=== PATIENT | female | born 1975 | race Caucasian/White ===

== ENCOUNTER 2017-05-24 22:05 | Emergency (ER) | payer BC, MEDICAID, OTHER ==
[~2017-05-24] VITALS: Ht 162.6 cm; Wt 72.6 kg
[2017-05-24] MEDS ORDERED: TETRACAINE HCL/PF 0.5% UD 2 ML BOTTLE ONE (22:44)
[2017-05-24] MEDS ORDERED: FLUORESCEIN SODIUM OPHTH 1 EA STRIP ONE (22:44)
[2017-05-24] MEDS ORDERED: TONO PEN in ED SUPPLY ONICELL 1 EA MC ONE (23:00)
[2017-05-24] MEDS ORDERED: diphenhydrAMINE HCL 50 MG/ML VIAL IV ONE (23:00)
[2017-05-24] MEDS ORDERED: METOCLOPRAMIDE HCL 10 MG/2 ML VIAL IV ONE (23:00)
[2017-05-24] MEDS ORDERED: TETRACAINE HCL/PF 0.5% UD 2 ML BOTTLE EACHEYE ONE (23:00)
[2017-05-24] MEDS ORDERED: FLUORESCEIN SODIUM OPHTH 1 EA STRIP OP ONE (23:00)
[2017-05-24] MEDS ORDERED: IV NS 0.9% 1,000 ML BAG IV ONE (23:00)
--- NOTE | 2017-05-24 23:00 | NUR ---
BIBSELF C/O RIGHT EYE PAIN/ HEADACHE X3AM . DENIES TRAUMA . SEEN BY MD FOR EVLISBETH. NAD NOTED. FAMILY MEMBER AT BS. SAFETY AND COMFORT MEASURES PROVIDED. WILL MONITOR.
[2017-05-24] MEDS ORDERED: diphenhydrAMINE HCL 50 MG/ML VIAL ONE (23:03)
[2017-05-24] MEDS ORDERED: METOCLOPRAMIDE HCL 10 MG/2 ML VIAL ONE (23:04)
--- NOTE | 2017-05-24 23:33 | NUR ---
ENDORSED TO ADOLPH RN FOR FLORI.
--- NOTE | 2017-05-25 00:59 | NUR ---
Patient discharged to home in stable condition. Written and verbal after care instructions along with RX given. Patient verbalizes understanding of instruction.IV removed. Catheter intact and site benign. Pressure and 4x4 applied to site. No bleeding noted. VSS upon discharge.
[2017-05-25 01:00] VITALS: BP 119/80
== END 2017-05-25 01:01 | disposition home or self-care (01) ==
LOC: ER 22:08
DX: R51 Headache (principal); Z98.890 Other specified postprocedural states
CPT/HCPCS: 70450-TC; 84703-TC; A4606; J1200; J2765; J7030; Z7610

== ENCOUNTER 2018-12-15 21:39 | Emergency (ER) | payer BC ==
[~2018-12-15] VITALS: Ht 162.6 cm; Wt 78.0 kg
[2018-12-15 22:16] VITALS: BP 129/84
--- NOTE | 2018-12-15 22:42 | NUR ---
BIBSELF FROM HOME W/ FAMILY. TO ER BED 18. AAOX4. NO RESP DISTRESS NOTED. AMBULATORY. C/O R KNEE PAIN. PT REPORTS THAT PAIN HAS BEEN GOING ON FOR A WHILE. PAIN IS REPORTED INTERMITENT, AGGREVATED BY DRIVING AND WALKING OCCASIONALLY. PT REPORTS THAT PAIN IS WORST TODAY. RATES PAIN 5/10. ROM INTACT. PAIN UPON PALPATION BELOW THAT PATELLA. MD WAS AT BEDSIDE FOR EVAL. ORDERS RECEIVED NOTED AND CARRIED OUT. XRAY AT BEDSIDE.
--- NOTE | 2018-12-15 23:58 | NUR ---
Patient discharged to home in stable condition. Written and verbal after care instructions given. Patient verbalizes understanding of instruction.Pt ambulatory with a steady gait
== END 2018-12-15 23:59 | disposition home or self-care (01) ==
LOC: ER 21:46
DX: M76.51 Patellar tendinitis, right knee (principal); Z90.89 Acquired absence of other organs
CPT/HCPCS: 73564-TC

== ENCOUNTER 2024-06-20 17:12 | Emergency (ER) | payer BC | END 2024-06-20 17:28 | disposition left against medical advice (07) | LOC: ER 17:14 | DX: M54.50 Low back pain, unspecified (principal); Z53.21 Procedure and treatment not carried out due to patient leaving prior to being seen by health care provider ==